=== PATIENT | female | born 1965 | race Caucasian/White ===

== ENCOUNTER 2019-05-20 21:41 | Inpatient (IN) | payer BC ==
[2019-05-20] MEDS: CEFAZOLIN 2 GM/50 ML (PMX) 50 ML IVPB (22:00)
[2019-05-20 22:50] LABS: ADD MAN DIFF? NO
[2019-05-20 22:56] LABS: BASOPHIL # 0.1 10^3/ul (0.0-0.1); BASOPHILS % 0.3 % (0.0-2.0); EOSINOPHILS % 0.1 % (0.0-7.0); HEMATOCRIT 38.6 % (37.0-47.0); HEMOGLOBIN 12.2 g/dl (12.0-16.0); LYMPHOCYTES # 3.7 10^3/ul (0.8-2.9); LYMPHOCYTES % 18.9 % (15.0-51.0); MEAN CORPUSCULAR HEMOGLOBIN 29.4 pg (29.0-33.0); MEAN CORPUSCULAR HGB CONC 31.6 g/dl (32.0-37.0); MEAN PLATELET VOLUME 10.7 fl (7.4-10.4); MONOCYTES % 5.1 % (0.0-11.0); NEUTROPHIL # 14.6 10^3/ul (1.6-7.5); PLATELET COUNT 308 10^3/UL (140-415); RED BLOOD COUNT 4.15 10^6/ul (4.20-5.40); RED CELL DISTRIBUTION WIDTH 15.1 % (11.5-14.5)
[2019-05-20 22:56] LABS: WHITE BLOOD COUNT 19.5 10^3/ul (4.8-10.8)
[2019-05-20 23:14] LABS: ALANINE AMINOTRANSFERASE 19 IU/L (13-69); ALBUMIN 4.1 g/dl (3.3-4.9); ALBUMIN/GLOBULIN RATIO 1.02; ALKALINE PHOSPHATASE 103 IU/L (42-121); ANION GAP 21 (5-13); ASPARTATE AMINO TRANSFERASE 35 IU/L (15-46); BILIRUBIN,INDIRECT 0.3 mg/dl (0-1.1); BILIRUBIN,TOTAL 0.3 mg/dl (0.2-1.3); BLOOD UREA NITROGEN 41 mg/dl (7-20); CARBON DIOXIDE 21 mmol/L (21-31); CHLORIDE 96 mmol/L (97-110); CREATININE 5.32 mg/dl (0.44-1.00); Estimated GFR 8 mL/min (>60); GLUCOSE 98 mg/dl (70-220); LIPASE 41 U/L (23-300); POTASSIUM 4.3 mmol/L (3.5-5.1); SODIUM 138 mmol/L (135-144); TOTAL PROTEIN 8.1 g/dl (6.1-8.1)
[2019-05-20] MEDS ORDERED: NACL 0.9% 3 ML SYG IV (23:30)
[2019-05-20] MEDS ORDERED: ACETAMINOPHEN 325 MG TAB PO (23:30)
[2019-05-20] MEDS ORDERED: GLUCOSE GEL 15 GRAM TUBE BUCCAL (23:30)
[2019-05-20] MEDS ORDERED: GLUCAGON 1 MG INJ IM (23:30)
[2019-05-20] MEDS ORDERED: GLUCOSE GEL 15 GRAM TUBE PO ×2 (23:30)
[2019-05-20] MEDS ORDERED: DEXTROSE 50% 50 ML SYRINGE IV ×2 (23:30)
[2019-05-20 23:45] LABS: INR 0.96; PROTIME 12.9 Sec (11.9-14.9)
[2019-05-20 23:46] LABS: PARTIAL THROMBOPLASTIN TIME 33.1 Sec (23.0-35.0)
[2019-05-21] MEDS: HYDROmorphONE 0.5 MG/0.5 ML SYG IV ×4 (00:11→20:13)
[2019-05-21 00:40] LABS: ANION GAP 19 (5-13); BLOOD UREA NITROGEN 42 mg/dl (7-20); CALCIUM 8.9 mg/dl (8.4-10.2); CARBON DIOXIDE 23 mmol/L (21-31); CHLORIDE 96 mmol/L (97-110); CREATININE 5.46 mg/dl (0.44-1.00); Estimated GFR 8 mL/min (>60); GLUCOSE 104 mg/dl (70-220); SODIUM 138 mmol/L (135-144)
[2019-05-21 05:32] LABS: ADD MAN DIFF? NO
[2019-05-21 05:38] LABS: WHITE BLOOD COUNT 13.4 10^3/ul (4.8-10.8)
[2019-05-21 05:38] LABS: BASOPHILS % 0.3 % (0.0-2.0); EOSINOPHILS % 0.1 % (0.0-7.0); HEMATOCRIT 32.4 % (37.0-47.0); HEMOGLOBIN 10.2 g/dl (12.0-16.0); LYMPHOCYTES # 3.1 10^3/ul (0.8-2.9); LYMPHOCYTES % 23.4 % (15.0-51.0); MEAN CORPUSCULAR HEMOGLOBIN 29.4 pg (29.0-33.0); MEAN CORPUSCULAR HGB CONC 31.5 g/dl (32.0-37.0); MEAN CORPUSCULAR VOLUME 93.4 fl (82.0-101.0); MEAN PLATELET VOLUME 10.9 fl (7.4-10.4); MONOCYTE # 0.8 10^3/ul (0.3-0.9); MONOCYTES % 6.2 % (0.0-11.0); NEUTROPHIL # 9.3 10^3/ul (1.6-7.5); NEUTROPHILS % 69.6 % (39.0-77.0); PLATELET COUNT 262 10^3/UL (140-415); RED BLOOD COUNT 3.47 10^6/ul (4.20-5.40); RED CELL DISTRIBUTION WIDTH 15.1 % (11.5-14.5)
[2019-05-21] MEDS: PANTOPRAZOLE (EC) 40 MG TAB PO ×2 (05:58→18:05)
[2019-05-21 07:02] LABS: HEMOGLOBIN A1C 6.3 % (0-5.9)
[2019-05-21] MEDS: DOCUSATE SODIUM 100 MG CAP PO ×2 (08:57→20:33)
[2019-05-21] MEDS: LEVOTHYROXINE 125 MCG TAB PO (08:57)
[2019-05-21] MEDS: FAMOTIDINE 20 MG TAB PO (08:57)
[2019-05-21] MEDS: ESCITALOPRAM 10 MG TAB PO (08:57)
[2019-05-21] MEDS: HEPARIN 5,000 UNIT/1 ML VIAL SC (08:59)
[2019-05-21] MEDS ORDERED: METHADONE 10 MG TAB PO (09:00)
[2019-05-21] MEDS ORDERED: CYANOCOBALAMIN 500 MCG TAB PO (09:00)
[2019-05-21] MEDS: metFORMIN 500 MG TAB PO (09:04)
[2019-05-21] MEDS: SOD CHLORIDE 0.9% 500 ML IV (09:15)
[2019-05-21] MEDS: LIOTHYRONINE 5 MCG TAB PO (09:43)
[2019-05-21] MEDS: ESTRADIOL 1 MG TAB PO (09:43)
[2019-05-21] MEDS: HYDROCODONE/APAP (5/325) TAB PO ×2 (09:44→19:11)
[2019-05-21] MEDS ORDERED: CEFAZOLIN 2 GM/50 ML (PMX) 50 ML IVPB (10:00)
[2019-05-21] MEDS ORDERED: LACTATED RINGER'S 500 ML IV (10:00)
[2019-05-21 10:30] LABS: ADD UMIC YES; UR ASCORBIC ACID NEGATIVE (NEGATIVE); UR BACTERIA FEW /HPF (NONE SEEN); UR BILIRUBIN (Dip) 1+ mg/dL (NEGATIVE); UR BLOOD (Dip) NEGATIVE (NEGATIVE); UR CLARITY CLOUDY (CLEAR); UR COLOR AMBER (YELLOW); UR GLUCOSE (Dip) NEGATIVE (NEGATIVE); UR KETONES (Dip) NEGATIVE (NEGATIVE); UR LEUKOCYTE ESTERASE (Dip) 3+ Leu/ul (NEGATIVE); UR NITRITE (Dip) NEGATIVE (NEGATIVE); UR RBC 7 /HPF (0-5); UR SPECIFIC GRAVITY (Dip) 1.021 (1.003-1.030); UR SQUAMOUS EPITHELIAL CELL MODERATE /HPF (FEW); UR TOTAL PROTEIN (Dip) 2+ mg/dl (NEGATIVE); UR UROBILINOGEN (Dip) NEGATIVE (NEGATIVE); UR WBC 8 /HPF (0-5)
[2019-05-21] MEDS ORDERED: LINAGLIPTIN 5 MG TABLET PO (10:30)
[2019-05-21] MEDS: ACCU-CHEK XX ×4 (11:10→19:55)
[2019-05-21] MEDS: GABAPENTIN 300 MG CAP PO ×2 (13:52→20:30)
[2019-05-21] MEDS: LINAGLIPTIN 5 MG TABLET PO (13:52)
[2019-05-21] MEDS: LACTATED RINGER'S 500 ML IV (13:52)
[2019-05-21] MEDS ORDERED: CYANOCOBALAMIN 1000 MCG INJ IM (14:00)
[2019-05-21] MEDS: COSYNTROPIN 0.25 MG INJ IV (16:43)
[2019-05-21] MEDS: SOD CHLORIDE 0.9% 1,000 ML IV (16:50)
[2019-05-21 17:25] LABS: ADD UMIC YES; UR ASCORBIC ACID NEGATIVE (NEGATIVE); UR BACTERIA FEW /HPF (NONE SEEN); UR BILIRUBIN (Dip) 1+ mg/dL (NEGATIVE); UR BLOOD (Dip) NEGATIVE (NEGATIVE); UR BUDDING YEAST FEW /HPF (NONE SEEN); UR CLARITY CLOUDY (CLEAR); UR COLOR AMBER (YELLOW); UR GLUCOSE (Dip) NEGATIVE (NEGATIVE); UR KETONES (Dip) TRACE mg/dL (NEGATIVE); UR LEUKOCYTE ESTERASE (Dip) 3+ Leu/ul (NEGATIVE); UR NITRITE (Dip) NEGATIVE (NEGATIVE); UR RBC 3 /HPF (0-5); UR SPECIFIC GRAVITY (Dip) 1.021 (1.003-1.030); UR SQUAMOUS EPITHELIAL CELL MODERATE /HPF (FEW); UR TOTAL PROTEIN (Dip) 2+ mg/dl (NEGATIVE); UR UROBILINOGEN (Dip) NEGATIVE (NEGATIVE); UR WBC 8 /HPF (0-5)
[2019-05-21] MEDS: CYANOCOBALAMIN 500 MCG TAB PO (17:30)
[2019-05-21 17:45] LABS: SODIUM,URINE RANDOM 81 mmol/L (30-90)
[2019-05-21 17:46] LABS: CREATININE,URINE RANDOM 131.94 mg/dl (20-320)
[2019-05-21 17:47] LABS: CREATININE,URINE RANDOM 130.36 mg/dl (20-320); PROTEIN/CREAT RATIO 0.36 RATIO
[2019-05-21] MEDS: ONDANSETRON 4 MG TAB PO (19:11)
[2019-05-21] MEDS: ATORVASTATIN 10 MG TAB PO (20:30)
[2019-05-21] MEDS: METHADONE 10 MG TAB PO (20:30)
[2019-05-21] MEDS: DULOXETINE 20 MG CAP DR PO (20:31)
[2019-05-21] MEDS ORDERED: NON-FORMULARY/PATIENT OWN MED (Simvastatin 10 MG) PO (21:00)
[2019-05-21] MEDS: ZOLPIDEM 5 MG TAB PO (21:29)
[2019-05-22] MEDS: DEXTROSE 5%-0.45% NACL 1,000 ML IV ×2 (00:03→09:36)
[2019-05-22] MEDS: SOD CHLORIDE 0.9% 1,000 ML IV (00:30)
[2019-05-22] MEDS: PANTOPRAZOLE (EC) 40 MG TAB PO ×2 (05:39→17:44)
[2019-05-22 05:47] LABS: ADD MAN DIFF? NO
[2019-05-22 05:58] LABS: WHITE BLOOD COUNT 10.6 10^3/ul (4.8-10.8)
[2019-05-22 05:58] LABS: BASOPHILS % 0.3 % (0.0-2.0); EOSINOPHILS % 0.3 % (0.0-7.0); HEMATOCRIT 35.5 % (37.0-47.0); HEMOGLOBIN 11.5 g/dl (12.0-16.0); LYMPHOCYTES % 18.9 % (15.0-51.0); MEAN CORPUSCULAR HGB CONC 32.4 g/dl (32.0-37.0); MEAN CORPUSCULAR VOLUME 92.7 fl (82.0-101.0); MEAN PLATELET VOLUME 10.8 fl (7.4-10.4); MONOCYTE # 0.7 10^3/ul (0.3-0.9); MONOCYTES % 6.9 % (0.0-11.0); NEUTROPHIL # 7.8 10^3/ul (1.6-7.5); NEUTROPHILS % 73.1 % (39.0-77.0); PLATELET COUNT 274 10^3/UL (140-415); RED BLOOD COUNT 3.83 10^6/ul (4.20-5.40); RED CELL DISTRIBUTION WIDTH 14.1 % (11.5-14.5)
[2019-05-22 06:43] LABS: ALANINE AMINOTRANSFERASE 19 IU/L (13-69); ALBUMIN 3.7 g/dl (3.3-4.9); ALBUMIN/GLOBULIN RATIO 1.05; ALKALINE PHOSPHATASE 97 IU/L (42-121); ANION GAP 17 (5-13); ASPARTATE AMINO TRANSFERASE 38 IU/L (15-46); BILIRUBIN,INDIRECT 0.4 mg/dl (0-1.1); BILIRUBIN,TOTAL 0.4 mg/dl (0.2-1.3); BLOOD UREA NITROGEN 48 mg/dl (7-20); CALCIUM 7.7 mg/dl (8.4-10.2); CARBON DIOXIDE 21 mmol/L (21-31); CHLORIDE 98 mmol/L (97-110); CREATININE 5.41 mg/dl (0.44-1.00); Estimated GFR 8 mL/min (>60); GLUCOSE 111 mg/dl (70-220); MAGNESIUM 1.1 mg/dl (1.7-2.5); PHOSPHORUS 6.1 mg/dl (2.5-4.9); SODIUM 136 mmol/L (135-144); TOTAL PROTEIN 7.2 g/dl (6.1-8.1)
[2019-05-22] MEDS: ACCU-CHEK XX ×6 (07:20→19:55)
[2019-05-22] MEDS: DULOXETINE 20 MG CAP DR PO ×2 (07:57→20:51)
[2019-05-22] MEDS: LEVOTHYROXINE 137 MCG TAB PO (07:57)
[2019-05-22] MEDS: ESCITALOPRAM 10 MG TAB PO (07:57)
[2019-05-22] MEDS: GABAPENTIN 300 MG CAP PO ×3 (07:57→20:50)
[2019-05-22] MEDS: HYDROmorphONE 0.5 MG/0.5 ML SYG IV ×4 (07:58→20:49)
[2019-05-22] MEDS: METHADONE 10 MG TAB PO ×2 (07:58→20:51)
[2019-05-22] MEDS: ESTRADIOL 1 MG TAB PO ×2 (08:06→12:40)
[2019-05-22] MEDS: DOCUSATE SODIUM 100 MG CAP PO ×3 (08:06→20:51)
[2019-05-22] MEDS: FAMOTIDINE 20 MG TAB PO ×2 (08:06→12:40)
[2019-05-22] MEDS: LIOTHYRONINE 5 MCG TAB PO (08:06)
[2019-05-22] MEDS: CHOLECALCIFEROL 1,000 UNIT TAB PO ×2 (08:07→12:40)
[2019-05-22] MEDS: HEPARIN 5,000 UNIT/1 ML VIAL SC ×2 (08:08→21:06)
[2019-05-22] MEDS ORDERED: CYANOCOBALAMIN 500 MCG TAB PO (09:00)
[2019-05-22] MEDS ORDERED: CYANOCOBALAMIN 1000 MCG INJ IM (09:00)
[2019-05-22] MEDS: SOD CHLORIDE 0.45% 1,000 ML IV ×2 (10:53→20:00)
[2019-05-22 12:13] LABS: IRON 32 ug/dl (35-150)
[2019-05-22 12:24] LABS: % IRON SATURATION 9 % SAT (22-52); TOTAL IRON BINDING CAPACITY 354 ug/dl (241-421)
[2019-05-22 12:29] LABS: PARATHYROID HORMONE 77.6 pg/ml (24.0-73.0)
[2019-05-22] MEDS: ONDANSETRON 4 MG TAB PO (12:33)
[2019-05-22] MEDS: CYANOCOBALAMIN 1000 MCG INJ IM (12:37)
[2019-05-22] MEDS: LINAGLIPTIN 5 MG TABLET PO (12:39)
[2019-05-22 12:53] LABS: FERRITIN 84.1 ng/ml (11.1-264.0)
[2019-05-22] MEDS: MAGNESIUM SULFATE 3 GM in DEXTROSE 5% 100 ML IVPB ×2 (15:23→15:30)
[2019-05-22] MEDS: HYDROCODONE/APAP (5/325) TAB PO (15:29)
[2019-05-22] MEDS: CYANOCOBALAMIN 500 MCG TAB PO (17:30)
[2019-05-22] MEDS: SOD FERRIC GLUC COMPLX 125 MG in SOD CHLORIDE 0.9% 100 ML IVPB (20:16)
[2019-05-22] MEDS: ATORVASTATIN 10 MG TAB PO (20:51)
[2019-05-23] MEDS: HYDROmorphONE 0.5 MG/0.5 ML SYG IV ×6 (00:26→22:28)
[2019-05-23] MEDS: SOD CHLORIDE 0.45% 1,000 ML IV ×2 (00:27→13:54)
[2019-05-23] MEDS: LEVOTHYROXINE 137 MCG TAB PO (04:23)
[2019-05-23] MEDS: PANTOPRAZOLE (EC) 40 MG TAB PO ×2 (04:24→17:53)
[2019-05-23 05:01] LABS: ADD MAN DIFF? NO
[2019-05-23 05:07] LABS: BASOPHILS % 0.2 % (0.0-2.0); EOSINOPHILS # 0.1 10^3/ul (0.0-0.5); EOSINOPHILS % 1.1 % (0.0-7.0); HEMATOCRIT 35.5 % (37.0-47.0); HEMOGLOBIN 11.6 g/dl (12.0-16.0); LYMPHOCYTES # 0.9 10^3/ul (0.8-2.9); LYMPHOCYTES % 15.1 % (15.0-51.0); MEAN CORPUSCULAR HEMOGLOBIN 29.9 pg (29.0-33.0); MEAN CORPUSCULAR HGB CONC 32.7 g/dl (32.0-37.0); MEAN CORPUSCULAR VOLUME 91.5 fl (82.0-101.0); MEAN PLATELET VOLUME 10.4 fl (7.4-10.4); MONOCYTE # 0.5 10^3/ul (0.3-0.9); MONOCYTES % 7.4 % (0.0-11.0); NEUTROPHIL # 4.7 10^3/ul (1.6-7.5); PLATELET COUNT 238 10^3/UL (140-415); RED BLOOD COUNT 3.88 10^6/ul (4.20-5.40); RED CELL DISTRIBUTION WIDTH 14.3 % (11.5-14.5)
[2019-05-23 05:07] LABS: WHITE BLOOD COUNT 6.2 10^3/ul (4.8-10.8)
[2019-05-23 05:29] LABS: ALANINE AMINOTRANSFERASE 21 IU/L (13-69); ALBUMIN 3.7 g/dl (3.3-4.9); ALBUMIN/GLOBULIN RATIO 1.05; ALKALINE PHOSPHATASE 104 IU/L (42-121); ANION GAP 9 (5-13); ASPARTATE AMINO TRANSFERASE 30 IU/L (15-46); BILIRUBIN,INDIRECT 0.5 mg/dl (0-1.1); BILIRUBIN,TOTAL 0.5 mg/dl (0.2-1.3); BLOOD UREA NITROGEN 32 mg/dl (7-20); CALCIUM 8.7 mg/dl (8.4-10.2); CARBON DIOXIDE 25 mmol/L (21-31); CHLORIDE 103 mmol/L (97-110); CREATININE 2.91 mg/dl (0.44-1.00); Estimated GFR 17 mL/min (>60); GLUCOSE 137 mg/dl (70-220); MAGNESIUM 2.2 mg/dl (1.7-2.5); PHOSPHORUS 2.8 mg/dl (2.5-4.9); POTASSIUM 4.3 mmol/L (3.5-5.1); SODIUM 137 mmol/L (135-144); TOTAL PROTEIN 7.2 g/dl (6.1-8.1)
[2019-05-23] MEDS: CEFAZOLIN 2 GM/50 ML (PMX) 50 ML IVPB (06:00)
[2019-05-23] MEDS: DULOXETINE 20 MG CAP DR PO ×2 (08:03→20:43)
[2019-05-23] MEDS: GABAPENTIN 300 MG CAP PO ×3 (08:03→20:43)
[2019-05-23] MEDS: ESCITALOPRAM 10 MG TAB PO (08:03)
[2019-05-23] MEDS: METHADONE 10 MG TAB PO ×2 (08:03→20:44)
[2019-05-23] MEDS: ESTRADIOL 1 MG TAB PO (08:37)
[2019-05-23] MEDS: LIOTHYRONINE 5 MCG TAB PO (08:38)
[2019-05-23] MEDS: DOCUSATE SODIUM 100 MG CAP PO ×2 (08:38→20:43)
[2019-05-23] MEDS: CHOLECALCIFEROL 1,000 UNIT TAB PO (08:38)
[2019-05-23] MEDS: LINAGLIPTIN 5 MG TABLET PO (08:38)
[2019-05-23] MEDS: ACCU-CHEK XX ×6 (08:39→19:55)
[2019-05-23] MEDS: FAMOTIDINE 20 MG TAB PO (08:39)
[2019-05-23] MEDS: METOPROLOL (XL) 50 MG TAB PO ×2 (09:28→20:45)
[2019-05-23] MEDS: HEPARIN 5,000 UNIT/1 ML VIAL SC ×2 (09:33→20:54)
[2019-05-23] MEDS: HYDROCODONE/APAP (5/325) TAB PO ×2 (10:41→14:47)
[2019-05-23] MEDS: SOD FERRIC GLUC COMPLX 125 MG in SOD CHLORIDE 0.9% 100 ML IVPB (12:34)
[2019-05-23] MEDS: CYANOCOBALAMIN 1000 MCG INJ IM (12:35)
[2019-05-23] MEDS: ASCORBIC ACID 500 MG TAB PO (16:52)
[2019-05-23] MEDS: CYANOCOBALAMIN 500 MCG TAB PO (16:52)
[2019-05-23] MEDS: ATORVASTATIN 10 MG TAB PO (20:44)
[2019-05-23] MEDS ORDERED: METOPROLOL (XL) 25 MG TAB PO (21:00)
[2019-05-23] MEDS: METOPROLOL (XL) 25 MG TAB PO (22:27)
[2019-05-24] MEDS: HYDROmorphONE 0.5 MG/0.5 ML SYG IV ×5 (02:55→19:20)
[2019-05-24 05:00] LABS: ADD MAN DIFF? NO
[2019-05-24 05:12] LABS: BASOPHILS % 0.3 % (0.0-2.0); EOSINOPHILS # 0.2 10^3/ul (0.0-0.5); EOSINOPHILS % 3.3 % (0.0-7.0); HEMATOCRIT 36.8 % (37.0-47.0); LYMPHOCYTES # 1.7 10^3/ul (0.8-2.9); LYMPHOCYTES % 29.2 % (15.0-51.0); MEAN CORPUSCULAR HEMOGLOBIN 29.9 pg (29.0-33.0); MEAN CORPUSCULAR HGB CONC 32.6 g/dl (32.0-37.0); MEAN CORPUSCULAR VOLUME 91.8 fl (82.0-101.0); MEAN PLATELET VOLUME 10.5 fl (7.4-10.4); MONOCYTE # 0.5 10^3/ul (0.3-0.9); MONOCYTES % 8.2 % (0.0-11.0); NEUTROPHIL # 3.4 10^3/ul (1.6-7.5); NEUTROPHILS % 58.7 % (39.0-77.0); PLATELET COUNT 252 10^3/UL (140-415); RED BLOOD COUNT 4.01 10^6/ul (4.20-5.40); RED CELL DISTRIBUTION WIDTH 13.8 % (11.5-14.5)
[2019-05-24 05:12] LABS: WHITE BLOOD COUNT 5.8 10^3/ul (4.8-10.8)
[2019-05-24 05:33] LABS: ALANINE AMINOTRANSFERASE 19 IU/L (13-69); ALBUMIN 4.1 g/dl (3.3-4.9); ALBUMIN/GLOBULIN RATIO 1.17; ALKALINE PHOSPHATASE 96 IU/L (42-121); ANION GAP 7 (5-13); ASPARTATE AMINO TRANSFERASE 26 IU/L (15-46); BILIRUBIN,INDIRECT 0.3 mg/dl (0-1.1); BILIRUBIN,TOTAL 0.3 mg/dl (0.2-1.3); BLOOD UREA NITROGEN 23 mg/dl (7-20); CALCIUM 9.9 mg/dl (8.4-10.2); CARBON DIOXIDE 28 mmol/L (21-31); CHLORIDE 103 mmol/L (97-110); CREATININE 1.65 mg/dl (0.44-1.00); Estimated GFR 33 mL/min (>60); GLUCOSE 120 mg/dl (70-220); POTASSIUM 4.6 mmol/L (3.5-5.1); SODIUM 138 mmol/L (135-144); TOTAL PROTEIN 7.6 g/dl (6.1-8.1)
[2019-05-24] MEDS: PANTOPRAZOLE (EC) 40 MG TAB PO ×2 (06:53→18:18)
[2019-05-24] MEDS: LEVOTHYROXINE 137 MCG TAB PO (06:53)
[2019-05-24] MEDS: ACCU-CHEK XX ×6 (07:20→20:39)
[2019-05-24] MEDS: CHOLECALCIFEROL 1,000 UNIT TAB PO (08:15)
[2019-05-24] MEDS: ESTRADIOL 1 MG TAB PO (08:16)
[2019-05-24] MEDS: ESCITALOPRAM 10 MG TAB PO (08:17)
[2019-05-24] MEDS: GABAPENTIN 300 MG CAP PO ×3 (08:17→20:33)
[2019-05-24] MEDS: LOSARTAN 25 MG TAB PO (08:17)
[2019-05-24] MEDS: FAMOTIDINE 20 MG TAB PO (08:18)
[2019-05-24] MEDS: DULOXETINE 20 MG CAP DR PO ×2 (08:18→20:37)
[2019-05-24] MEDS: LINAGLIPTIN 5 MG TABLET PO (08:18)
[2019-05-24] MEDS: LIOTHYRONINE 5 MCG TAB PO (08:18)
[2019-05-24] MEDS: DOCUSATE SODIUM 100 MG CAP PO ×2 (08:19→20:37)
[2019-05-24] MEDS: ASCORBIC ACID 500 MG TAB PO (08:19)
[2019-05-24] MEDS: METHADONE 10 MG TAB PO ×2 (08:20→20:35)
[2019-05-24] MEDS: METOPROLOL (XL) 25 MG TAB PO ×2 (08:20→20:36)
[2019-05-24] MEDS: HEPARIN 5,000 UNIT/1 ML VIAL SC ×2 (08:28→20:42)
[2019-05-24] MEDS: HYDROCODONE/APAP (5/325) TAB PO ×2 (10:59→18:18)
[2019-05-24] MEDS: SOD FERRIC GLUC COMPLX 125 MG in SOD CHLORIDE 0.9% 100 ML IVPB (14:09)
[2019-05-24] MEDS: CYANOCOBALAMIN 500 MCG TAB PO (18:18)
[2019-05-24] MEDS: ATORVASTATIN 10 MG TAB PO (20:37)
[2019-05-25] MEDS: HYDROmorphONE 0.5 MG/0.5 ML SYG IV ×5 (00:11→22:02)
[2019-05-25 04:51] LABS: ADD MAN DIFF? NO
[2019-05-25 04:55] LABS: WHITE BLOOD COUNT 8.7 10^3/ul (4.8-10.8)
[2019-05-25 04:55] LABS: BASOPHILS % 0.3 % (0.0-2.0); EOSINOPHILS # 0.2 10^3/ul (0.0-0.5); EOSINOPHILS % 2.2 % (0.0-7.0); HEMATOCRIT 33.4 % (37.0-47.0); LYMPHOCYTES # 2.3 10^3/ul (0.8-2.9); LYMPHOCYTES % 26.1 % (15.0-51.0); MEAN CORPUSCULAR HEMOGLOBIN 30.3 pg (29.0-33.0); MEAN CORPUSCULAR HGB CONC 32.9 g/dl (32.0-37.0); MEAN PLATELET VOLUME 10.2 fl (7.4-10.4); MONOCYTE # 0.6 10^3/ul (0.3-0.9); MONOCYTES % 6.8 % (0.0-11.0); NEUTROPHIL # 5.6 10^3/ul (1.6-7.5); NEUTROPHILS % 64.1 % (39.0-77.0); PLATELET COUNT 269 10^3/UL (140-415); RED BLOOD COUNT 3.63 10^6/ul (4.20-5.40); RED CELL DISTRIBUTION WIDTH 13.5 % (11.5-14.5)
[2019-05-25 05:33] LABS: ANION GAP 8 (5-13); BLOOD UREA NITROGEN 22 mg/dl (7-20); CALCIUM 9.9 mg/dl (8.4-10.2); CARBON DIOXIDE 28 mmol/L (21-31); CHLORIDE 100 mmol/L (97-110); CREATININE 1.27 mg/dl (0.44-1.00); Estimated GFR 44 mL/min (>60); GLUCOSE 168 mg/dl (70-220); MAGNESIUM 1.2 mg/dl (1.7-2.5); PHOSPHORUS 3.2 mg/dl (2.5-4.9); POTASSIUM 4.8 mmol/L (3.5-5.1); SODIUM 136 mmol/L (135-144)
[2019-05-25] MEDS: PANTOPRAZOLE (EC) 40 MG TAB PO ×2 (05:59→17:24)
[2019-05-25] MEDS: LIOTHYRONINE 5 MCG TAB PO (08:22)
[2019-05-25] MEDS: ESCITALOPRAM 10 MG TAB PO (08:22)
[2019-05-25] MEDS: GABAPENTIN 300 MG CAP PO ×3 (08:22→20:32)
[2019-05-25] MEDS: LEVOTHYROXINE 137 MCG TAB PO (08:22)
[2019-05-25] MEDS: DULOXETINE 20 MG CAP DR PO ×2 (08:23→20:32)
[2019-05-25] MEDS: ESTRADIOL 1 MG TAB PO (08:23)
[2019-05-25] MEDS: DOCUSATE SODIUM 100 MG CAP PO ×2 (08:24→20:33)
[2019-05-25] MEDS: ASCORBIC ACID 500 MG TAB PO (08:25)
[2019-05-25] MEDS: FAMOTIDINE 20 MG TAB PO (08:25)
[2019-05-25] MEDS: LINAGLIPTIN 5 MG TABLET PO (08:28)
[2019-05-25] MEDS: LOSARTAN 25 MG TAB PO (08:30)
[2019-05-25] MEDS: CHOLECALCIFEROL 1,000 UNIT TAB PO (08:32)
[2019-05-25] MEDS: METHADONE 10 MG TAB PO ×2 (08:33→20:54)
[2019-05-25] MEDS: ACCU-CHEK XX ×6 (08:37→20:49)
[2019-05-25] MEDS: HEPARIN 5,000 UNIT/1 ML VIAL SC ×2 (08:37→20:43)
[2019-05-25] MEDS: METOPROLOL (XL) 25 MG TAB PO ×2 (08:48→20:51)
[2019-05-25] MEDS: ALPRAZOLAM 0.5 MG TAB PO (09:44)
[2019-05-25] MEDS: MAGNESIUM SULFATE 3 GM in DEXTROSE 5% 100 ML IVPB (10:49)
[2019-05-25] MEDS: SOD FERRIC GLUC COMPLX 125 MG in SOD CHLORIDE 0.9% 100 ML IVPB (14:43)
[2019-05-25] MEDS: HYDROCODONE/APAP (5/325) TAB PO ×2 (16:39→17:24)
[2019-05-25] MEDS: CYANOCOBALAMIN 500 MCG TAB PO (16:40)
[2019-05-25] MEDS: MAGNESIUM/AMINO ACIDS TAB PO (18:00)
[2019-05-25] MEDS: ATORVASTATIN 10 MG TAB PO (20:32)
[2019-05-26] MEDS: LACTATED RINGER'S 1,000 ML IV ×2 (00:50→14:18)
[2019-05-26] MEDS: HYDROmorphONE 0.5 MG/0.5 ML SYG IV ×4 (00:50→16:37)
[2019-05-26] MEDS: ZOLPIDEM 5 MG TAB PO (01:24)
[2019-05-26 04:58] LABS: WHITE BLOOD COUNT 10.9 10^3/ul (4.8-10.8)
[2019-05-26 04:58] LABS: BASOPHIL # 0.1 10^3/ul (0.0-0.1); BASOPHILS % 0.5 % (0.0-2.0); EOSINOPHILS # 0.3 10^3/ul (0.0-0.5); EOSINOPHILS % 2.8 % (0.0-7.0); HEMATOCRIT 38.5 % (37.0-47.0); HEMOGLOBIN 12.5 g/dl (12.0-16.0); LYMPHOCYTES # 2.9 10^3/ul (0.8-2.9); LYMPHOCYTES % 26.2 % (15.0-51.0); MEAN CORPUSCULAR HEMOGLOBIN 29.7 pg (29.0-33.0); MEAN CORPUSCULAR HGB CONC 32.5 g/dl (32.0-37.0); MEAN CORPUSCULAR VOLUME 91.4 fl (82.0-101.0); MEAN PLATELET VOLUME 10.3 fl (7.4-10.4); MONOCYTE # 0.8 10^3/ul (0.3-0.9); MONOCYTES % 7.5 % (0.0-11.0); NEUTROPHIL # 6.8 10^3/ul (1.6-7.5); NEUTROPHILS % 62.4 % (39.0-77.0); PLATELET COUNT 298 10^3/UL (140-415); RED BLOOD COUNT 4.21 10^6/ul (4.20-5.40); RED CELL DISTRIBUTION WIDTH 13.9 % (11.5-14.5)
[2019-05-26 04:59] LABS: ADD MAN DIFF? NO
[2019-05-26] MEDS: PANTOPRAZOLE (EC) 40 MG TAB PO ×2 (05:17→18:11)
[2019-05-26] MEDS: LEVOTHYROXINE 137 MCG TAB PO (05:18)
[2019-05-26 05:24] LABS: ANION GAP 9 (5-13); BLOOD UREA NITROGEN 22 mg/dl (7-20); CALCIUM 10.3 mg/dl (8.4-10.2); CARBON DIOXIDE 31 mmol/L (21-31); CHLORIDE 98 mmol/L (97-110); CREATININE 1.19 mg/dl (0.44-1.00); Estimated GFR 48 mL/min (>60); GLUCOSE 102 mg/dl (70-220); MAGNESIUM 1.6 mg/dl (1.7-2.5); PHOSPHORUS 4.9 mg/dl (2.5-4.9); POTASSIUM 4.6 mmol/L (3.5-5.1); SODIUM 138 mmol/L (135-144)
[2019-05-26] MEDS: ACCU-CHEK XX ×6 (07:20→19:55)
[2019-05-26] MEDS: FAMOTIDINE 20 MG TAB PO (08:52)
[2019-05-26] MEDS: MAGNESIUM/AMINO ACIDS TAB PO (08:53)
[2019-05-26] MEDS: METHADONE 10 MG TAB PO ×2 (08:53→20:51)
[2019-05-26] MEDS: DULOXETINE 20 MG CAP DR PO ×2 (08:53→20:50)
[2019-05-26] MEDS: GABAPENTIN 300 MG CAP PO ×3 (08:54→20:50)
[2019-05-26] MEDS: DOCUSATE SODIUM 100 MG CAP PO ×2 (08:55→20:51)
[2019-05-26] MEDS: LOSARTAN 25 MG TAB PO ×2 (08:55→20:51)
[2019-05-26] MEDS: METOPROLOL (XL) 25 MG TAB PO ×2 (08:55→20:51)
[2019-05-26] MEDS: HEPARIN 5,000 UNIT/1 ML VIAL SC ×2 (08:56→20:53)
[2019-05-26] MEDS: LIOTHYRONINE 5 MCG TAB PO (09:00)
[2019-05-26] MEDS: ESTRADIOL 1 MG TAB PO (09:00)
[2019-05-26] MEDS: ASCORBIC ACID 500 MG TAB PO (09:00)
[2019-05-26] MEDS: CHOLECALCIFEROL 1,000 UNIT TAB PO (09:00)
[2019-05-26] MEDS: ESCITALOPRAM 10 MG TAB PO (09:00)
[2019-05-26] MEDS: ALPRAZOLAM 0.5 MG TAB PO ×2 (09:15→21:13)
[2019-05-26] MEDS ORDERED: NEOSTIGMINE 3 MG/3 ML SYRINGE (10:23)
[2019-05-26] MEDS ORDERED: PROPOFOL 20 ML (10:23)
[2019-05-26] MEDS ORDERED: ROCURONIUM 50 MG INJ (10:23)
[2019-05-26] MEDS ORDERED: GLYCOPYRROLATE 0.4 MG INJ (10:23)
[2019-05-26] MEDS ORDERED: CEFAZOLIN 1 GM INJ (10:23)
[2019-05-26] MEDS ORDERED: MIDAZOLAM 1 MG/ML 2 ML INJ ×2 (10:24→14:14)
[2019-05-26] MEDS ORDERED: ONDANSETRON 4 MG INJ ×2 (10:24→14:14)
[2019-05-26] MEDS ORDERED: DEXAMETHASONE 4 MG/ML 5 ML INJ (10:24)
[2019-05-26] MEDS ORDERED: FENTAnyl 50 MCG/ML VIAL ×3 (10:24→14:14)
[2019-05-26] MEDS ORDERED: ROPIVACAINE 0.5 % 30 ML VIAL (11:14)
[2019-05-26] MEDS: POLYMYXIN/BACITRACIN 1L IRRIG (12:04)
[2019-05-26] MEDS: ROPIVACAINE 0.5 % 30 ML VIAL (12:04)
[2019-05-26] MEDS ORDERED: LABETALOL HCL 20MG INJ (12:36)
[2019-05-26] MEDS: BACITRACIN/POLYMYXIN 28.35 GM OINT TOP (13:32)
[2019-05-26] MEDS ORDERED: SUGAMMADEX SODIUM 200 MG/2 ML VIAL IV (13:38)
[2019-05-26] MEDS ORDERED: hydrALAzine 20 MG INJ (13:53)
[2019-05-26] MEDS ORDERED: FENTAnyl 50 MCG/ML VIAL IV ×3 (14:00)
[2019-05-26] MEDS: LACTATED RINGER'S 500 ML IV (14:00)
[2019-05-26] MEDS ORDERED: IPRATROPIUM (NEB) 0.5 MG/2.5 ML AMP HHN (14:00)
[2019-05-26] MEDS ORDERED: ALBUTEROL 0.083% (NEB) 2.5 MG/3 ML AMP HHN (14:00)
[2019-05-26] MEDS ORDERED: HYDROmorphONE 1 MG/5 ML IV SYRINGE IV ×3 (14:00→14:03)
[2019-05-26] MEDS ORDERED: TRIMETHOBENZAMIDE 100 MG/ML VIAL IM (14:00)
[2019-05-26] MEDS ORDERED: DIPHENHYDRAMINE 50 MG INJ IV (14:00)
[2019-05-26] MEDS ORDERED: EPHEDrine 25 MG/5 ML SYG IV (14:00)
[2019-05-26] MEDS ORDERED: OXYCODONE/ACETAMINOPHEN (5/325) TAB PO (14:00)
[2019-05-26] MEDS ORDERED: MEPERIDINE 25 MG INJ (14:03)
[2019-05-26] MEDS: hydrALAzine 20 MG INJ IV ×2 (14:20→14:25)
[2019-05-26] MEDS: ONDANSETRON 4 MG INJ IV (14:20)
[2019-05-26] MEDS: MEPERIDINE 25 MG INJ IV (14:20)
[2019-05-26] MEDS: MIDAZOLAM 1 MG/ML 2 ML INJ IV (14:21)
[2019-05-26] MEDS: HYDROmorphONE 1 MG/5 ML IV SYRINGE IV (14:29)
[2019-05-26] MEDS: OXYCODONE/ACETAMINOPHEN (5/325) TAB PO (14:35)
[2019-05-26] MEDS: LABETALOL HCL 20MG INJ IV (14:38)
[2019-05-26] MEDS: LINAGLIPTIN 5 MG TABLET PO (16:21)
[2019-05-26] MEDS: MAGNESIUM SULFATE 3 GM in DEXTROSE 5% 100 ML IVPB (16:21)
[2019-05-26] MEDS: CYANOCOBALAMIN 500 MCG TAB PO (18:12)
[2019-05-26] MEDS: HYDROmorphONE 2 MG/ML SYG IV ×2 (19:58→23:11)
[2019-05-26] MEDS: CEFAZOLIN 1 GM/50 ML (PMX) 50 ML IVPB (20:06)
[2019-05-26] MEDS: ATORVASTATIN 10 MG TAB PO (20:51)
[2019-05-27] MEDS: CEFAZOLIN 1 GM/50 ML (PMX) 50 ML IVPB ×3 (01:26→11:57)
[2019-05-27] MEDS: HYDROmorphONE 2 MG/ML SYG IV ×6 (02:33→19:56)
[2019-05-27] MEDS: ALPRAZOLAM 0.5 MG TAB PO ×3 (03:24→22:08)
[2019-05-27] MEDS: LACTATED RINGER'S 1,000 ML IV (04:36)
[2019-05-27] MEDS: LOSARTAN 25 MG TAB PO ×2 (04:42→20:22)
[2019-05-27] MEDS: PANTOPRAZOLE (EC) 40 MG TAB PO ×2 (05:39→18:22)
[2019-05-27] MEDS: LEVOTHYROXINE 137 MCG TAB PO (06:34)
[2019-05-27] MEDS ORDERED: LIDOCAINE 1%/EPI 30 ML INJ (07:56)
[2019-05-27] MEDS ORDERED: FENTAnyl 50 MCG/ML VIAL (08:45)
[2019-05-27] MEDS ORDERED: MIDAZOLAM 1 MG/ML 2 ML INJ (08:45)
[2019-05-27] MEDS: HEPARIN 5,000 UNIT/1 ML VIAL SC ×2 (09:00→20:24)
[2019-05-27] MEDS: ACCU-CHEK XX ×6 (09:50→20:01)
[2019-05-27] MEDS: ESTRADIOL 1 MG TAB PO (10:12)
[2019-05-27] MEDS: DOCUSATE SODIUM 100 MG CAP PO ×2 (10:12→20:21)
[2019-05-27] MEDS: METHADONE 10 MG TAB PO ×2 (10:13→21:50)
[2019-05-27] MEDS: METOPROLOL (XL) 25 MG TAB PO ×2 (10:13→21:50)
[2019-05-27] MEDS: FAMOTIDINE 20 MG TAB PO (10:13)
[2019-05-27] MEDS: ASCORBIC ACID 500 MG TAB PO (10:13)
[2019-05-27] MEDS: ESCITALOPRAM 10 MG TAB PO (10:14)
[2019-05-27] MEDS: MAGNESIUM/AMINO ACIDS TAB PO (10:14)
[2019-05-27] MEDS: AMOXICILLIN/CLAV 875 MG TAB PO ×3 (10:14→20:21)
[2019-05-27] MEDS: LINAGLIPTIN 5 MG TABLET PO (10:14)
[2019-05-27] MEDS: GABAPENTIN 300 MG CAP PO (10:14)
[2019-05-27] MEDS: CHOLECALCIFEROL 1,000 UNIT TAB PO (10:15)
[2019-05-27] MEDS: DULOXETINE 20 MG CAP DR PO ×2 (10:15→20:21)
[2019-05-27] MEDS: LIOTHYRONINE 5 MCG TAB PO (10:15)
[2019-05-27 10:39] LABS: ADD MAN DIFF? NO
[2019-05-27 10:42] LABS: BASOPHILS % 0.3 % (0.0-2.0); EOSINOPHILS % 0.3 % (0.0-7.0); HEMATOCRIT 36.6 % (37.0-47.0); HEMOGLOBIN 11.8 g/dl (12.0-16.0); LYMPHOCYTES # 1.9 10^3/ul (0.8-2.9); LYMPHOCYTES % 15.7 % (15.0-51.0); MEAN CORPUSCULAR HGB CONC 32.2 g/dl (32.0-37.0); MEAN CORPUSCULAR VOLUME 93.1 fl (82.0-101.0); MEAN PLATELET VOLUME 9.5 fl (7.4-10.4); MONOCYTE # 0.8 10^3/ul (0.3-0.9); MONOCYTES % 6.9 % (0.0-11.0); NEUTROPHIL # 9.1 10^3/ul (1.6-7.5); NEUTROPHILS % 75.7 % (39.0-77.0); PLATELET COUNT 293 10^3/UL (140-415); RED BLOOD COUNT 3.93 10^6/ul (4.20-5.40); RED CELL DISTRIBUTION WIDTH 13.9 % (11.5-14.5)
[2019-05-27 10:42] LABS: WHITE BLOOD COUNT 11.9 10^3/ul (4.8-10.8)
[2019-05-27 11:10] LABS: ANION GAP 10 (5-13); BLOOD UREA NITROGEN 18 mg/dl (7-20); CALCIUM 9.7 mg/dl (8.4-10.2); CARBON DIOXIDE 27 mmol/L (21-31); CHLORIDE 101 mmol/L (97-110); CREATININE 1.07 mg/dl (0.44-1.00); Estimated GFR 54 mL/min (>60); GLUCOSE 146 mg/dl (70-220); MAGNESIUM 1.9 mg/dl (1.7-2.5); POTASSIUM 4.1 mmol/L (3.5-5.1); SODIUM 138 mmol/L (135-144)
[2019-05-27] MEDS: CELECOXIB 100 MG CAP PO ×2 (16:03→20:21)
[2019-05-27] MEDS: CYANOCOBALAMIN 500 MCG TAB PO (18:22)
[2019-05-27] MEDS: ATORVASTATIN 10 MG TAB PO (20:21)
[2019-05-27] MEDS: GABAPENTIN 400 MG CAP PO (20:22)
[2019-05-28] MEDS: HYDROmorphONE 2 MG/ML SYG IV ×8 (01:29→23:29)
[2019-05-28] MEDS: PANTOPRAZOLE (EC) 40 MG TAB PO ×2 (06:26→17:52)
[2019-05-28] MEDS: LEVOTHYROXINE 137 MCG TAB PO (06:26)
[2019-05-28] MEDS: ALPRAZOLAM 0.5 MG TAB PO ×3 (06:30→21:56)
[2019-05-28] MEDS: ACCU-CHEK XX ×6 (07:20→18:20)
[2019-05-28] MEDS: LINAGLIPTIN 5 MG TABLET PO (07:51)
[2019-05-28] MEDS: ASCORBIC ACID 500 MG TAB PO (07:51)
[2019-05-28] MEDS: MAGNESIUM/AMINO ACIDS TAB PO (07:52)
[2019-05-28] MEDS: DOCUSATE SODIUM 100 MG CAP PO ×2 (07:52→20:19)
[2019-05-28] MEDS: AMOXICILLIN/CLAV 875 MG TAB PO ×2 (07:52→20:17)
[2019-05-28] MEDS: LIOTHYRONINE 5 MCG TAB PO (07:52)
[2019-05-28] MEDS: FAMOTIDINE 20 MG TAB PO (07:52)
[2019-05-28] MEDS: METHADONE 10 MG TAB PO ×2 (07:53→20:18)
[2019-05-28] MEDS: DULOXETINE 20 MG CAP DR PO ×2 (07:53→20:17)
[2019-05-28] MEDS: CHOLECALCIFEROL 1,000 UNIT TAB PO (07:54)
[2019-05-28] MEDS: ESCITALOPRAM 10 MG TAB PO (07:54)
[2019-05-28] MEDS: LOSARTAN 25 MG TAB PO ×3 (07:55→09:15)
[2019-05-28] MEDS: METOPROLOL (XL) 25 MG TAB PO ×2 (07:55→20:19)
[2019-05-28] MEDS: CELECOXIB 100 MG CAP PO ×2 (07:55→20:17)
[2019-05-28] MEDS: ESTRADIOL 1 MG TAB PO (07:56)
[2019-05-28] MEDS: GABAPENTIN 400 MG CAP PO ×3 (07:56→20:18)
[2019-05-28] MEDS: HEPARIN 5,000 UNIT/1 ML VIAL SC (07:58)
[2019-05-28] MEDS: ENOXAPARIN 40 MG/0.4 ML SYG SC (08:50)
[2019-05-28] MEDS ORDERED: LOSARTAN 50 MG TAB PO (09:00)
[2019-05-28] MEDS: DOXAZOSIN 1 MG TAB PO (10:42)
[2019-05-28] MEDS: CYANOCOBALAMIN 500 MCG TAB PO (17:52)
[2019-05-28] MEDS: DOXAZOSIN 2 MG TAB PO (20:17)
[2019-05-28] MEDS: ATORVASTATIN 10 MG TAB PO (20:17)
[2019-05-28] MEDS: LOSARTAN 50 MG TAB PO (20:18)
[2019-05-28] MEDS: ZOLPIDEM 5 MG TAB PO (23:28)
[2019-05-29] MEDS: HYDROmorphONE 2 MG/ML SYG IV ×4 (03:10→12:39)
[2019-05-29 05:56] LABS: ANION GAP 7 (5-13); BLOOD UREA NITROGEN 20 mg/dl (7-20); CALCIUM 9.8 mg/dl (8.4-10.2); CARBON DIOXIDE 28 mmol/L (21-31); CHLORIDE 101 mmol/L (97-110); Estimated GFR > 60 mL/min (>60); GLUCOSE 121 mg/dl (70-220); POTASSIUM 3.9 mmol/L (3.5-5.1); SODIUM 136 mmol/L (135-144)
[2019-05-29] MEDS: PANTOPRAZOLE (EC) 40 MG TAB PO ×2 (06:23→17:07)
[2019-05-29] MEDS: LEVOTHYROXINE 137 MCG TAB PO (06:23)
[2019-05-29] MEDS: ACCU-CHEK XX ×6 (07:20→18:19)
[2019-05-29] MEDS: LIOTHYRONINE 5 MCG TAB PO (08:25)
[2019-05-29] MEDS: CELECOXIB 100 MG CAP PO ×2 (08:26→20:10)
[2019-05-29] MEDS: AMOXICILLIN/CLAV 875 MG TAB PO ×2 (08:26→20:09)
[2019-05-29] MEDS: CHOLECALCIFEROL 1,000 UNIT TAB PO (08:26)
[2019-05-29] MEDS: GABAPENTIN 400 MG CAP PO ×3 (08:27→20:09)
[2019-05-29] MEDS: ESCITALOPRAM 10 MG TAB PO (08:27)
[2019-05-29] MEDS: ESTRADIOL 1 MG TAB PO (08:27)
[2019-05-29] MEDS: ASCORBIC ACID 500 MG TAB PO (08:28)
[2019-05-29] MEDS: LINAGLIPTIN 5 MG TABLET PO (08:28)
[2019-05-29] MEDS: LOSARTAN 50 MG TAB PO ×2 (08:29→20:11)
[2019-05-29] MEDS: FAMOTIDINE 20 MG TAB PO (08:29)
[2019-05-29] MEDS: DOCUSATE SODIUM 100 MG CAP PO ×2 (08:29→20:09)
[2019-05-29] MEDS: ALPRAZOLAM 0.5 MG TAB PO ×2 (08:29→16:29)
[2019-05-29] MEDS: METHADONE 10 MG TAB PO ×2 (08:29→20:09)
[2019-05-29] MEDS: MAGNESIUM/AMINO ACIDS TAB PO (08:58)
[2019-05-29] MEDS: DULOXETINE 20 MG CAP DR PO ×2 (08:59→20:09)
[2019-05-29] MEDS: HYDROmorphONE 2 MG TAB PO ×4 (14:09→23:33)
[2019-05-29] MEDS: CYANOCOBALAMIN 500 MCG TAB PO (17:07)
[2019-05-29] MEDS: RIVAROXABAN 20 MG TABLET PO (17:07)
[2019-05-29] MEDS: METOPROLOL (XL) 25 MG TAB PO (20:09)
[2019-05-29] MEDS: ATORVASTATIN 10 MG TAB PO (20:09)
[2019-05-29] MEDS: DOXAZOSIN 2 MG TAB PO (20:09)
[2019-05-30] MEDS: PANTOPRAZOLE (EC) 40 MG TAB PO (05:16)
[2019-05-30] MEDS: HYDROmorphONE 2 MG TAB PO ×2 (05:16→08:21)
[2019-05-30] MEDS: LEVOTHYROXINE 137 MCG TAB PO (05:16)
[2019-05-30] MEDS: ALPRAZOLAM 0.5 MG TAB PO (05:53)
[2019-05-30] MEDS: ACCU-CHEK XX ×4 (07:20→13:40)
[2019-05-30] MEDS: METHADONE 10 MG TAB PO (08:24)
[2019-05-30] MEDS: MAGNESIUM/AMINO ACIDS TAB PO (08:25)
[2019-05-30] MEDS: ESTRADIOL 1 MG TAB PO (08:25)
[2019-05-30] MEDS: DULOXETINE 20 MG CAP DR PO (08:25)
[2019-05-30] MEDS: AMOXICILLIN/CLAV 875 MG TAB PO (08:25)
[2019-05-30] MEDS: LINAGLIPTIN 5 MG TABLET PO (08:26)
[2019-05-30] MEDS: DOCUSATE SODIUM 100 MG CAP PO (08:26)
[2019-05-30] MEDS: ASCORBIC ACID 500 MG TAB PO (08:26)
[2019-05-30] MEDS: LIOTHYRONINE 5 MCG TAB PO (08:26)
[2019-05-30] MEDS: ESCITALOPRAM 10 MG TAB PO (08:26)
[2019-05-30] MEDS: GABAPENTIN 400 MG CAP PO ×2 (08:27→12:17)
[2019-05-30] MEDS: CHOLECALCIFEROL 1,000 UNIT TAB PO (08:27)
[2019-05-30] MEDS: CELECOXIB 100 MG CAP PO (08:27)
[2019-05-30] MEDS: FAMOTIDINE 20 MG TAB PO (08:27)
[2019-05-30] MEDS: OXYCODONE/ACETAMINOPHEN (5/325) TAB PO (13:02)
== END 2019-05-30 16:05 | disposition home health service (06) | DRG 493 ==
LOC: MS1 23:15 → E/R 21:41 → MS1 05-22 22:15
PROC: 0QSK04Z Reposition Left Fibula with Internal Fixation Device, Open Approach (ICD-10-PCS; principal; 2019-05-26 11:30)
PROC: 0MQR0ZZ Repair Left Ankle Bursa and Ligament, Open Approach (ICD-10-PCS; 2019-05-26 11:30)
PROC: 0SCG0ZZ Extirpation of Matter from Left Ankle Joint, Open Approach (ICD-10-PCS; 2019-05-26 11:30)
PROC: 0JH602Z Insertion of Monitoring Device into Chest Subcutaneous Tissue and Fascia, Open Approach (ICD-10-PCS; 2019-05-26 11:31)
DX: S82.65XA Nondisplaced fracture of lateral malleolus of left fibula, initial encounter for closed fracture (principal); N17.9 Acute kidney failure, unspecified; F11.20 Opioid dependence, uncomplicated; N14.0 Analgesic nephropathy; T39.395A Adverse effect of other nonsteroidal anti-inflammatory drugs [NSAID], initial encounter; E89.0 Postprocedural hypothyroidism; E53.8 Deficiency of other specified B group vitamins; E11.42 Type 2 diabetes mellitus with diabetic polyneuropathy; E78.5 Hyperlipidemia, unspecified; E66.9 Obesity, unspecified; F32.9 Major depressive disorder, single episode, unspecified; F41.9 Anxiety disorder, unspecified; F34.1 Dysthymic disorder; G89.4 Chronic pain syndrome; I10 Essential (primary) hypertension; K21.9 Gastro-esophageal reflux disease without esophagitis; M79.7 Fibromyalgia; R55 Syncope and collapse; S93.432A Sprain of tibiofibular ligament of left ankle, initial encounter; W18.30XA Fall on same level, unspecified, initial encounter; Z85.850 Personal history of malignant neoplasm of thyroid; Z68.34 Body mass index [BMI] 34.0-34.9, adult; Z79.84 Long term (current) use of oral hypoglycemic drugs
CPT/HCPCS: 33285; 71045; 76775; 80048; 80053; 81001; 81003; 82306; 82533; 82570; 82728; 82962; 83036; 83540; 83690; 83735; 83970; 84100; 84155; 84300; 85025; 85610; 85730; 86850; 86870; 86900; 86901; 86902; 87086; 93005; 93306; 93880; 93971; 97116; 97161; 97530; 99285-25

== ENCOUNTER 2019-06-12 06:16 | Observation (INO) | payer BC ==
[2019-06-12] MEDS ORDERED: POLYMYXIN/BACITRACIN 1L IRRIG ×2 (07:13→10:54)
[2019-06-12] MEDS ORDERED: ROPIVACAINE 0.5 % 30 ML VIAL (07:13)
[2019-06-12] MEDS: SOD CHLORIDE 0.9% 1,000 ML IV (07:29)
[2019-06-12] MEDS ORDERED: ONDANSETRON 4 MG INJ IV ×2 (08:00→12:00)
[2019-06-12] MEDS ORDERED: CEFAZOLIN 1 GM INJ (08:00)
[2019-06-12] MEDS ORDERED: DIPHENHYDRAMINE 25 MG CAP PO (08:00)
[2019-06-12] MEDS ORDERED: ACETAMINOPHEN 325 MG TAB PO (08:00)
[2019-06-12] MEDS ORDERED: oxyCODONE 5 MG TAB PO (08:00)
[2019-06-12] MEDS ORDERED: DESFLURANE 15 MIN (08:00)
[2019-06-12] MEDS ORDERED: HYDROmorphONE 2 MG/ML SYG ×2 (08:06→09:55)
[2019-06-12] MEDS ORDERED: MIDAZOLAM 1 MG/ML 2 ML INJ (08:06)
[2019-06-12] MEDS ORDERED: ETOMIDATE 20 MG INJ (08:06)
[2019-06-12] MEDS ORDERED: LIDOCAINE 2% (SDV) 5 ML INJ (08:06)
[2019-06-12] MEDS ORDERED: ROCURONIUM 50 MG INJ ×2 (08:06→09:54)
[2019-06-12] MEDS: POLYMYXIN/BACITRACIN 1L IRRIG IRR (08:52)
[2019-06-12] MEDS ORDERED: METOPROLOL 5 MG INJ (10:06)
[2019-06-12] MEDS ORDERED: FAMOTIDINE 20 MG INJ (11:12)
[2019-06-12] MEDS ORDERED: ONDANSETRON 4 MG INJ (11:12)
[2019-06-12] MEDS ORDERED: SUGAMMADEX SODIUM 200 MG/2 ML VIAL IV (11:26)
[2019-06-12] MEDS: NEOMYC/POLYMYX/BACIT 30 GM OINT (11:30)
[2019-06-12] MEDS: HYDROmorphONE 1 MG/ML SYG IV ×5 (11:58→21:30)
[2019-06-12] MEDS ORDERED: hydrALAzine 20 MG INJ IV (12:00)
[2019-06-12] MEDS ORDERED: HYDROmorphONE 1 MG/5 ML IV SYRINGE IV ×2 (12:00)
[2019-06-12] MEDS ORDERED: LABETALOL HCL 20MG INJ IV (12:00)
[2019-06-12] MEDS: HYDROmorphONE 1 MG/5 ML IV SYRINGE IV ×5 (12:07→12:52)
[2019-06-12] MEDS: CEFAZOLIN 1 GM/50 ML (PMX) 50 ML IVPB ×3 (12:19→23:57)
[2019-06-12] MEDS ORDERED: TIZANIDINE 4 MG TAB PO (13:30)
[2019-06-12] MEDS ORDERED: ZOLPIDEM 5 MG TAB PO (13:30)
[2019-06-12] MEDS: GABAPENTIN 300 MG CAP PO ×4 (14:53→21:03)
[2019-06-12] MEDS ORDERED: DEXTROSE 50% 50 ML SYRINGE IV ×2 (15:00)
[2019-06-12] MEDS ORDERED: GLUCOSE GEL 15 GRAM TUBE PO ×2 (15:00)
[2019-06-12] MEDS ORDERED: GLUCOSE GEL 15 GRAM TUBE BUCCAL (15:00)
[2019-06-12] MEDS ORDERED: GLUCAGON 1 MG INJ IM (15:00)
[2019-06-12] MEDS ORDERED: OXYCODONE/ACETAMINOPHEN (5/325) TAB PO (15:00)
[2019-06-12] MEDS: METHADONE 10 MG TAB PO ×3 (15:39→23:57)
[2019-06-12] MEDS ORDERED: HYDROmorphONE 1 MG/ML SYG IV (17:00)
[2019-06-12] MEDS: ACCU-CHEK XX ×2 (17:15→21:00)
[2019-06-12] MEDS: INSULIN ASPART [NOVOLOG] 3 ML PEN SC ×2 (17:55→21:00)
[2019-06-12] MEDS: metFORMIN 500 MG TAB PO (18:32)
[2019-06-12] MEDS ORDERED: METHADONE 10 MG TAB PO ×2 (21:00)
[2019-06-12] MEDS: LOSARTAN 50 MG TAB PO (21:00)
[2019-06-12] MEDS: DOCUSATE SODIUM 100 MG CAP PO (21:01)
[2019-06-12] MEDS: DULOXETINE 20 MG CAP DR PO (21:01)
[2019-06-12] MEDS: ATORVASTATIN 10 MG TAB PO (21:02)
[2019-06-12] MEDS: DOXAZOSIN 2 MG TAB PO (21:02)
[2019-06-12] MEDS: PANTOPRAZOLE (EC) 40 MG TAB PO (21:02)
[2019-06-12] MEDS: ALPRAZOLAM 0.5 MG TAB PO (21:13)
[2019-06-13] MEDS: HYDROmorphONE 1 MG/ML SYG IV ×7 (00:30→18:28)
[2019-06-13] MEDS: CEFAZOLIN 1 GM/50 ML (PMX) 50 ML IVPB (05:57)
[2019-06-13] MEDS: METHADONE 10 MG TAB PO ×3 (05:57→17:52)
[2019-06-13] MEDS: ACCU-CHEK XX ×3 (07:20→17:53)
[2019-06-13] MEDS: SOD CHLORIDE 0.9% 1,000 ML IV (07:30)
[2019-06-13] MEDS: INSULIN ASPART [NOVOLOG] 3 ML PEN SC ×3 (07:30→17:55)
[2019-06-13] MEDS: ESTRADIOL 1 MG TAB PO (08:17)
[2019-06-13] MEDS: CHOLECALCIFEROL 1,000 UNIT TAB PO (08:18)
[2019-06-13] MEDS: DOCUSATE SODIUM 100 MG CAP PO (08:18)
[2019-06-13] MEDS: GABAPENTIN 300 MG CAP PO ×3 (08:18→12:26)
[2019-06-13] MEDS: DULOXETINE 20 MG CAP DR PO (08:18)
[2019-06-13] MEDS: PANTOPRAZOLE (EC) 40 MG TAB PO (09:04)
[2019-06-13] MEDS: LEVOTHYROXINE 137 MCG TAB PO (09:04)
[2019-06-13] MEDS: LINAGLIPTIN 5 MG TABLET PO (09:04)
[2019-06-13] MEDS: metFORMIN 500 MG TAB PO ×2 (10:54→17:55)
[2019-06-13] MEDS: RIVAROXABAN 10 MG TABLET PO (17:52)
== END 2019-06-13 19:30 | disposition home or self-care (01) ==
LOC: SDS 06:16 → REC 07:50 → MS1 16:55
DX: S93.422A Sprain of deltoid ligament of left ankle, initial encounter (principal); S93.492A Sprain of other ligament of left ankle, initial encounter; S93.432A Sprain of tibiofibular ligament of left ankle, initial encounter; M65.872 Other synovitis and tenosynovitis, left ankle and foot; M24.072 Loose body in left ankle; E11.9 Type 2 diabetes mellitus without complications; E78.5 Hyperlipidemia, unspecified; E03.9 Hypothyroidism, unspecified; F33.9 Major depressive disorder, recurrent, unspecified; G89.4 Chronic pain syndrome; I11.0 Hypertensive heart disease with heart failure; I50.30 Unspecified diastolic (congestive) heart failure; Z85.850 Personal history of malignant neoplasm of thyroid; Z79.84 Long term (current) use of oral hypoglycemic drugs; X58.XXXA Exposure to other specified factors, initial encounter
CPT/HCPCS: 27698; 73610; 80053; 82306; 82962; 85025; 87086; 88300; 96365; 96366; 96376; 97116; 97161